=== PATIENT | female | born 1960 | race Caucasian/White ===

== ENCOUNTER 2019-03-03 14:47 | Observation (INO) ==
--- NOTE | 2019-03-03 16:22 | EKG Report ---
Test Performed on : 03/03/2019 4:13:19 PM Test Reason : chest PAIN Blood Pressure : / mmHG Vent. Rate : 072 BPM Atrial Rate : 072 BPM P-R Int : 150 ms QRS Dur : 084 ms QT Int : 382 ms P-R-T Axes : 072 066 062 degrees QTc Int : 418 ms Normal sinus rhythm. Normal ECG When compared with ECG of 08-JAN-2014 05:49, No significant change was found Confirmed by Qing AYALA, Javier ([id number]) on 03/04/2019 8:43:38 AM
--- NOTE | 2019-03-03 17:33 | CARDIOLOGY CONSULTATION ---
DATE: 03/03/2019 CHIEF COMPLAINT ON PRESENTATION: Chest pain. HISTORY OF PRESENT ILLNESS: Ms. Donald is a 53-year-old, white female with a history of COPD and continued tobacco abuse. She presented to Dr. Cates's office today with complaints of chest pain that were felt to be pressure in nature occurring essentially at rest. Most of the episodes have occurred over the last week and around 9:00 or 9:30 at night while she is getting ready for bed. She eats around 6:00 or 6:30. There do not appear to be any reliable episodes occurring with exertion. Some of these have resulted in nausea followed by vomiting. She did note to have significant constipation on an abdomen x-ray this past week. She continues to smoke. PAST MEDICAL HISTORY: 1. COPD. 2. Degenerative arthritis. 3. Cardiac catheterization in 2013 demonstrating angiographically normal coronaries. SOCIAL HISTORY: She smokes. She is . is present in the room. FAMILY HISTORY: Significant for hypertension. No early coronary disease in her first-degree relatives. PHYSICAL EXAMINATION: Vital signs: She is afebrile. Heart rate of 76. Blood pressure 105/65. General: She is in no acute distress. Cardiovascular: She sounds to be in a regular rate and rhythm. She has no obvious murmurs. She has no S3. She has no lower extremity edema. Chest Exam: Clear bilaterally. She has no increased work of breathing. Abdomen: Soft, nontender, nondistended. She has no obvious organomegaly. Skin Exam: Warm and dry throughout without any rashes. Neurological: She is moving all extremities well. She has no lateralizing deficits. Psychiatric: She is alert, oriented, pleasant. She has normal mood and affect. PERTINENT DATA: Her EKG reviewed by me shows sinus rhythm, no acute findings. Her laboratory data is currently pending. Chest x-ray is currently pending. ASSESSMENT: Ms. Donald is a 58-year-old female with a history of tobacco use who presents with complaints of chest pain. PLAN: She has angiographically normal coronaries 5 years ago. We will reassess with a stress test and an echocardiogram. We will trend her cardiac enzymes and evaluate her lipids in the morning. cc: MD Adiel Fonseca MD
--- NOTE | 2019-03-03 18:06 | Diag Imaging Result Doc PS360 ---
CHEST-2 VIEWS - 03/03/2019 INDICATION: cp COMPARISON: 05/31/2018 FINDINGS: There is some faint linear atelectasis in the lateral left lung base. No focal infiltrates, pneumothorax, or pleural effusion. Stable calcified granulomas in the right lung base and right hilum. Heart size and pulmonary vascularity is normal. IMPRESSION: Faint atelectasis in the left lung base. No acute disease. Electronically signed by Epifanio Ojeda 03/03/2019 6:03 PM
[2019-03-03] MEDS: ASPIRIN EC PO SCH (18:08)
[2019-03-03] MEDS ORDERED: DOXYCYCLINE PO PRN (20:52)
[2019-03-03] MEDS ORDERED: NORCO-7.5 PO PRN (20:52)
[2019-03-03] MEDS ORDERED: LIPITOR PO SCH (21:00)
[2019-03-03] MEDS ORDERED: DESYREL PO SCH (21:00)
[2019-03-03] MEDS ORDERED: ZANAFLEX PO SCH (21:00)
--- NOTE | 2019-03-03 21:29 | HISTORY AND PHYSICAL ---
CHIEF COMPLAINT: Chest pain. A 58-year-old white female patient, known case of hyperlipidemia, menopause, hypertension, admitted with chest pain. The patient is very vague and poor historian. Complaining of chest pain, precordial at times between the shoulder blades. The patient was complaining of chest pain with minimal exertion. She was feeling fatigued and tired. The patient claims she had 5 steps to go into her house and she was getting very short of breath climbing those 5 steps. Her pain was between shoulder blade. She described pain as heaviness or tightness lasting for few minutes to many minutes. At times associated shortness of breath. Pain going on for a few days. The patient also has pain at night when she tries to relax. Patient was concerned. No radiation of pain to the arm. She did have associated shortness of breath, at times sweating. Patient came to the office for evaluation. Because of her risk factor chest pain I evaluated patient and decided to admit her for further care. The patient does have chronic cough with leg swelling. No history suggestive of DVT or pulmonary embolism. The patient does have gastritis and reflux disease. No dysphagia or odynophagia. The patient had EGD done about year ago requiring esophageal dilation. No hematemesis or melena. At times epigastric discomfort. No heat or cold intolerance. The patient does have polyuria, polydipsia. Complaining of dyspnea on exertion. No vaginal discharge, spotting, bleeding. No heat or cold intolerance. The patient does have arthritic pain in the knee, also in the hip and lower back. No history of joint swelling or redness. ALLERGIES: No known drug allergy. HOME MEDICATION: Includes Celebrex, Lasix, Lipitor, aspirin, estradiol, bronchodilator treatment, [place], trazodone, Prilosec, Lyrica, Zanaflex. PAST MEDICAL HISTORY: Osteoarthritis, gastritis and reflux disease, hyperlipidemia, menopause, muscle spasm, patient had hip replacement done, hiatal hernia, fibromyalgia. PERSONAL HISTORY: lives with the . The patient does smoke, denied alcohol or substance abuse. FAMILY HISTORY: Significant for hypertension otherwise noncontributory. REVIEW OF SYSTEMS: As per HPI. PHYSICAL EXAMINATION: Middle-aged white female patient in no acute distress. VITAL SIGNS: Blood pressure 105/65, pulse 76, respirations 16, temperature 97.8 degrees. SKIN: Normal turgor. HEENT: Head atraumatic, normocephalic. Cassandra conjunctivae. Anicteric sclerae. Extraocular muscle movement normal. Fundus cannot be penetrated. Good oral hygiene. No tonsillopharyngeal congestion or exudate. Ears and nose benign. NECK: Supple. No JVD, thyromegaly or lymphadenopathy. CHEST: Bilateral good air entry present. Bibasilar crepitation. Occasional wheezing. CARDIOVASCULAR: S1 and S2 heard. No gallop or thrill. ABDOMEN: Soft. No distention. Bowel sounds present. Mild epigastric tenderness. No guarding or rigidity. EXTREMITIES: No cyanosis, clubbing. No acute DVT. LAW ENFORCEMENT OFFICER: Alert, awake, able to move all 4 limbs. Crepitation both the knee joints. DATA: Patient admission EKG noted. Chest x-ray revealed faint atelectasis in the left lung base. CONSIDERATION: 1. Chest pain, rule out myocardial infarction. 2. Chronic obstructive pulmonary disease . 3. Gastritis and reflux disease. 4. Osteoarthritis . 5. Fibromyalgia. 6. Hyperlipidemia. PLAN: Admit patient, EKG, appropriate lab, cardiology consult. Encourage smoking cessation, continue home medicine. Overall plan discussed at length with the patient and she is in agreement. cc: Adiel Yung MD
[2019-03-03 22:20] LABS: ALLEN TEST YES; BE 2.9 mmoll (-3.0-3.0); BLOOD TYPE ARTERIAL; METHB 1.1 % (0.0-1.5); MODALITY ROOM AIR; O2(CT) 18.5 mL/dL (15.0-23.0); O2HB 91.6 % (95.0-99.0); PCO2(98.6) 43 mmHg (35-45); PO2(98.6) 83 mmHg (60-100); SAMPLE BLOOD; SAO2 98.3 % (95.0-100.0); THB 14.3 g/dL (11.5-17.4); pH(98.6) 7.42 (7.35-7.45)
[2019-03-03 22:27] LABS: AGAP 10; ALB/GLOB RATIO 1.5; ALBUMIN 3.7 g/dL (3.5-5.0); ALKALINE PHOSPHATASE 91 U/L (32-104); BUN 18 mg/dL (8-22); CALCIUM 8.9 mg/dL (8.8-10.2); CHLORIDE 106 mmol/L (98-107); COSMO 287; CREATININE 0.6 mg/dL (0.5-0.9); ESTIMATED GFR > 60; GLUCOSE 127 mg/dL (70-104); GOT 12 U/L (10-30); GPT 11 U/L (10-36); SODIUM 142 mmol/L (136-145); TCO2 26 mmol/L (25-35); TOTAL BILIRUBIN 0.19 mg/dL (0.20-1.00); TOTAL PROTEIN 6.2 g/dL (6.3-8.3)
[2019-03-03 22:56] LABS: BASO# 0.03 X1000 (0.0-0.2); BASO% 0.4 % (0.0-0.8); EOS% 2.6 % (0.0-10.0); HEMATOCRIT 41.7 % (37.0-47.0); HEMOGLOBIN 13.9 g/dL (12.0-16.0); IMM GRAN# 0.02 X1000 (0.0-0.04); IMM GRAN% 0.3 % (0.0-0.5); LYMPH# 2.64 X1000 (1.2-3.4); LYMPH% 33.8 % (20.5-51.1); MCH 28.7 PG (27-31); MCHC 33.3 g/dL (33-37); MCV 86.2 FL (81-99); MONO# 0.52 X1000 (0.11-0.59); MONO% 6.7 % (1.7-9.3); MPV 11.8 FL (7.4-10.4); NEUT% 56.2 % (42.2-75.2); PLT 209 X1000 (130-400); RBC 4.84 XMIL (4.2-5.4); RDW 14.4 % (11.5-14.5); WBC 7.81 X1000 (4.8-10.8)
[2019-03-03] MEDS: LYRICA PO SCH (23:53)
[2019-03-04 06:26] LABS: CHOLESTEROL 161 mg/dL (0-200); HDL 60 mg/dL (45-65); LDL 82 mg/dL; TRIGLYCERIDES 96 mg/dL (35-135); VLDL 19 mg/dL
--- NOTE | 2019-03-04 07:06 | EKG Report ---
Test Performed on : 03/04/2019 07:00:03 AM Test Reason : cp Blood Pressure : / mmHG Vent. Rate : 068 BPM Atrial Rate : 068 BPM P-R Int : 146 ms QRS Dur : 078 ms QT Int : 376 ms P-R-T Axes : 077 078 076 degrees QTc Int : 399 ms Normal sinus rhythm. Normal ECG When compared with ECG of 03-MAR-2019 22:01, (Unconfirmed) No significant change was found Confirmed by Qing AYALA, Javier ([id number]) on 03/04/2019 8:44:56 AM
--- NOTE | 2019-03-04 07:07 | EKG Report ---
Test Performed on : 03/03/2019 10:01:38 PM Test Reason : cp Blood Pressure : / mmHG Vent. Rate : 070 BPM Atrial Rate : 070 BPM P-R Int : 150 ms QRS Dur : 082 ms QT Int : 378 ms P-R-T Axes : 074 069 067 degrees QTc Int : 408 ms Normal sinus rhythm. Normal ECG When compared with ECG of 03-MAR-2019 16:13, (Unconfirmed) No significant change was found Confirmed by Qing AYALA, Javier ([id number]) on 03/04/2019 8:43:58 AM
[2019-03-04] MEDS ORDERED: NON-FORMULARY MED (Fluticasone/Umeclidin/Vilanter [Trelegy Ellipta 100-62.5-25] 1 EA) Inhalation SCH (07:30)
--- NOTE | 2019-03-04 07:34 | PROGRESS NOTE ---
DATE: 03/04/2019 SUBJECTIVE: Ms. Donald is doing better, complaining of some headache. Patient claims she was not able to sleep well last night. No nausea or vomiting. No dysuria. No typical chest pain. Patient admitted with chest pain. Myocardial infarction ruled out by negative cardiac isoenzymes. The patient does have chronic cough with scanty sputum production. Her chest x-ray did reveal faint atelectasis. OBJECTIVE: Vital signs: Noted. Neck: Supple. No JVD. Lungs: Bilateral good air entry present. Cardiovascular: S1 and S2 heard. Abdomen: Soft, nontender. Bowel sounds present. HARDSCAPE FOREMAN: Alert, awake able to move all 4 limbs. LABORATORY DATA: Noted. Blood gas revealed elevated carboxyhemoglobin level. PLAN: 1. Encouraged patient not to smoke. Electrolytes were fairly benign. Lipid panel results reviewed. We are going to get a stress test today. Her problem includes chest pain, hyperlipidemia, gastritis and reflux disease. 2. History suggestive of fibromyalgia, chronic obstructive pulmonary disease . Her labs and medication noted. Overall plan discussed with the patient and she is in agreement. cc: Adiel Yung MD
[2019-03-04] MEDS ORDERED: PRILOSEC PO SCH (09:00)
[2019-03-04] MEDS ORDERED: CELEBREX PO SCH (09:00)
[2019-03-04] MEDS ORDERED: ESTRACE PO SCH (09:00)
[2019-03-04] MEDS ORDERED: LASIX PO SCH (09:00)
[2019-03-04] MEDS ORDERED: LEXISCAN ONE (12:24)
[2019-03-04] MEDS ORDERED: AMINOPHYLLINE ONE (12:43)
[2019-03-04] MEDS: ASPIRIN EC PO SCH (14:22)
[2019-03-04] MEDS: LYRICA PO SCH (14:22)
--- NOTE | 2019-03-04 15:19 | Diag Imaging Result Document ---
PROCEDURE NAME: MYOCARDIAL PERF SCAN, STR/REST - 03/04/2019 STUDY: Rest/stress Lexiscan myocardial perfusion study. INDICATION: A patient with chest pain. DESCRIPTION: The patient came into the nuclear lab and received rest injection of technetium-99m sestamibi of 11.9 mCi. Multiple tomographic views of the cardiac structures were obtained at rest. Subsequently, the patient underwent infusion of Lexiscan 0.4 mg per protocol. At peak infusion, she was injected with technetium-99m sestamibi 33.0 mCi. Multiple tomographic views of the cardiac structures were obtained following the completion of the Lexiscan protocol. SUMMARY OF ELECTROCARDIOGRAPHIC PORTION OF THE STUDY: Resting ECG shows sinus rhythm, rate 69 per minute, resting blood pressure 112/73. Resting ECG was normal. During the protocol, the heart rate increased to a maximum of 100 beats per minute, blood pressure went up to 127/75. The ECG showed no significant changes. The patient reported some chest pressure radiating into the back of moderate severity. At the end of the procedure, she received aminophylline 125 mg 1 time. Later on, all the symptoms subsided. No changes were noted on the ECG. In summary, electrocardiographic response to infusion of Lexiscan is normal. SUMMARY OF MYOCARDIAL PERFUSION PORTION OF THE STUDY: Poststress tomographic views of the left ventricle showed normal homogeneous distribution of radiotracer throughout the entire left ventricular myocardium. There is no evidence of any postexercise defect. The rest images show normal perfusion. Polar plots revealed the same. There is no evidence of neither inducible ischemia nor myocardial scar. Gated SPECT showed normal left ventricular systolic function, ejection fraction is estimated at 68% with normal ventricular volume, no wall motion abnormality. The lung/heart ratio is normal. TID is 1.11. SUMMARY: This study shows: 1. Normal electrocardiographic response to infusion of Lexiscan. 2. Normal poststress myocardial perfusion scan. There is no scintigraphic evidence of pharmacologic-induced myocardial ischemia. 3. Normal left ventricular systolic function, ejection fraction of 68%. No wall motion abnormality. Clinical correlation is recommended. cc: MD Arnulfo Hair MD
[2019-03-04 15:37] VITALS: BP 125/75
--- NOTE | 2019-03-04 16:31 | ECHO REPORT ---
ORDER DATE: 03/04/2019 INTERPRETING PHYSICIAN: Dr. Joe REQUESTING PHYSICIAN: Dr. Yung and Dr. Arnulfo Maguire CLINICAL INDICATIONS: This is a 58-year-old female with chest pain. M-MODE MEASUREMENTS: Right ventricle: cm. Left ventricle end diastole: 4.8 cm. Left ventricle end systole: 2.6 cm. Posterior wall: 1.8 cm. Interventricular septum: 1.8 cm. Left atrium: 3.0 cm. Aortic root: 3.2 cm. SUMMARY OF 2-DIMENSIONAL IMAGIN. The left ventricular function is normal. Ejection fraction is 63%. No wall motion abnormality noted. 2. Right ventricle is normal. 3. The atria appear to be at the upper limits of normal. 4. Inferior vena cava is not dilated. 5. Aortic valve looks normal. Color flow mapping is unremarkable. 6. Mitral valve shows mild degree of regurgitation. Pulse wave Doppler of mitral inflow shows mild reversal of the E and the A ratio. The ratio is 0.8. 7. Tissue Doppler of septal and lateral mitral annulus averages 12 cm. 8. Pulmonary venous flow is normal. 9. There is no diastolic dysfunction. 10.Tricuspid valve shows mild degree of regurgitation. 11.Pulmonary pressure is estimated at 35 mmHg. 12.Pulmonic valve is normal. Color flow mapping is unremarkable. 13.There is no pericardial effusion, mass or thrombus. CONCLUSIONS: In summary, this study shows: 1. Normal left ventricular systolic function. 2. No diastolic dysfunction. 3. Pulmonary systolic pressure is estimated at 35 mmHg. 4. Mild degree of mitral, tricuspid and pulmonic regurgitation. 5. Unremarkable aortic valve. Clinical correlation is recommended. cc: MD Arnulfo Hair MD Bharat K. Vakharia, MD
--- NOTE | 2019-03-04 21:14 | DISCHARGE SUMMARY ---
ADMISSION DATE: 03/03/2019 DISCHARGE DATE: 03/04/2019 SUBJECTIVE: Ms. Donald is doing better. No typical chest pain or palpitations. The patient underwent stress test. Results reviewed and discussed with the patient. The patient is eager to go home. Dull headache. Mild cough. No expectoration. OBJECTIVE: The patient's vital signs noted. Neck is supple. No JVD. Lungs: Bibasilar crepitations. Heart: Regular. Abdomen: Soft, nontender. Bowel sounds present. GRINDER OPERATOR SURFACE TOOL: Alert, awake, able to move all 4 limbs. DIAGNOSTIC: Her echocardiogram was benign. Stress test was negative. Lipid panel results reviewed. Total cholesterol 161. HDL was 60. LDL 82. Cardiac isoenzymes were negative. ASSESSMENT AND PLAN: Overall, patient is doing better. I am planning to discharge her home today. Continue home medicine. Enteric-coated aspirin daily. Smoking cessation. Follow up with me in a week. We will work her up as a noncardiac chest pain as an outpatient. Continue Prilosec anti reflux measures. In case of more distress, call us back or go to the emergency room. cc: Adiel Yung MD
== END 2019-03-04 19:42 | disposition home or self-care (01) ==
LOC: DIRADM → 3N 14:47
PROVIDERS: ADMIT Internal Medicine; ATTEND Internal Medicine
CPT/HCPCS: 71020; 71046; 78452; 80053; 80061; 82550; 82805; 84484; 85025; 85379; 93005; 93010; 93017; 93306; A9270; A9500; J0280; J0820; J2785